=== PATIENT | male | born 1960 | race Caucasian/White ===

== ENCOUNTER → 2023-06-24 10:32 | Outpatient (REF) | payer BC, SELFPAY ==
[2023-06-24 10:41] LABS: % Basophils 0.5 % (0-2); % Eosinophils 0.9 % (0-6); % Immature Granulocytes 0.2 % (0-0.5); % Monocytes 6.5 % (1.7-9.3); % Neutrophils 66.9 % (42.2-75.2); Absolute Lymphocytes 1.1 10^3/uL (1.2-3.4); Absolute Monocytes 0.3 10^3/uL (0.1-0.6); Hematocrit 43.1 % (39.0-52.0); Hemoglobin 14.8 g/dL (13.0-18.0); Mean Corp Hgb Conc. 34.3 g/dL (33.0-37.0); Mean Corpuscular Hgb 32.3 pg (27.0-31.0); Mean Corpuscular Volume 94.1 fL (80.0-94.0); Mean Platelet Volume 9.9 fL (7.4-10.4); Platelet Count 182 10^3/uL (130-400); Red Blood Cell Count 4.58 10^6/uL (4.70-6.10); Red Cell Dist. Width 13.3 % (11.5-14.5); White Blood Cell Count 4.4 10^3/uL (4.8-10.8)
[2023-06-24 11:59] LABS: ALT (SGPT) 24 U/L (0-50); AST (SGOT) 28 U/L (17-59); Albumin 4.3 g/dl (3.5-5.0); Alkaline Phosphatase 68 U/L (38-126); Blood Urea Nitrogen 15 mg/dl (9-20); Calcium 9.2 mg/dl (8.4-10.2); Carbon Dioxide 29 mmol/L (22-30); Chloride 102 mmol/L (98-107); Glucose 99 mg/dl (70-99); Potassium 4.3 mmol/L (3.5-5.1); Sodium 136 mmol/L (135-145); Total Protein 6.6 g/dl (6.3-8.2); eGFR 56.13
[2023-06-24 12:01] LABS: C-Reactive Protein < 5.00 mg/L (0.0-10.00)
[2023-06-24 13:06] LABS: Erythrocyte Sed Rate 11 mm/hour (0-20)
== END ==
LOC: OIDL 10:32
PROVIDERS: ATTENDING PHYSICIAN Internal Medicine Rheumatology; FAMILY PHYSICIAN Family Medicine
DX: M06.00 Rheumatoid arthritis without rheumatoid factor, unspecified site (principal)
CPT/HCPCS: 36415; 80053; 85025; 85652; 86140

== ENCOUNTER 2023-08-21 10:54 | Outpatient (RCR) | payer BC, SELFPAY ==
[2023-08-07 10:50] VITALS: BP 131/74
[2023-08-07] MEDS: NSS 250 IV (11:07)
[2023-08-07] MEDS: ORENCIA 100 MG IV (11:07)
[2023-08-07 12:08] VITALS: BP 132/73
[2023-08-21 11:03] VITALS: BP 110/69
[2023-08-21] MEDS: NSS 250 IV (11:19)
[2023-08-21] MEDS: ORENCIA 100 MG IV (11:46)
[2023-08-21 12:52] VITALS: BP 122/80
== END 2023-08-25 09:18 | disposition home or self-care (01) ==
LOC: OID 10:54
PROVIDERS: ATTENDING PHYSICIAN Internal Medicine Rheumatology; FAMILY PHYSICIAN Family Medicine
DX: M06.00 Rheumatoid arthritis without rheumatoid factor, unspecified site (principal)
CPT/HCPCS: 96365; J0129

== ENCOUNTER 2023-09-04 10:42 | Outpatient (RCR) | payer BC, SELFPAY ==
[2023-09-04 11:01] VITALS: BP 124/64
[2023-09-04] MEDS: ORENCIA 100 MG IV (11:25)
[2023-09-04] MEDS: NSS 250 IV (11:30)
== END 2023-09-07 08:48 | disposition home or self-care (01) ==
LOC: OID 10:42
PROVIDERS: ATTENDING PHYSICIAN Internal Medicine Rheumatology; FAMILY PHYSICIAN Family Medicine
DX: M06.00 Rheumatoid arthritis without rheumatoid factor, unspecified site (principal)
CPT/HCPCS: 96365; J0129

== ENCOUNTER 2023-10-05 10:44 | Outpatient (RCR) | payer BC, SELFPAY ==
[2023-10-05 11:00] VITALS: BP 135/76
[2023-10-05 11:09] VITALS: BMI 26.8
[2023-10-05] MEDS: ORENCIA 100 MG IV (11:21)
[2023-10-05] MEDS: NSS 250 IV (11:21)
[2023-10-05 12:15] VITALS: BP 140/77
[2023-10-08 10:13] LABS: % Basophils 0.4 % (0-2); % Eosinophils 1.3 % (0-6); % Lymphocytes 23.6 % (20.5-51.1); % Monocytes 6.7 % (1.7-9.3); Absolute Eosinophils 0.1 10^3/uL (0-0.7); Absolute Lymphocytes 1.1 10^3/uL (1.2-3.4); Absolute Monocytes 0.3 10^3/uL (0.1-0.6); Absolute Neutrophils 3.1 10^3/uL (1.4-6.5); Hematocrit 41.3 % (39.0-52.0); Hemoglobin 14.5 g/dL (13.0-18.0); Mean Corp Hgb Conc. 35.1 g/dL (33.0-37.0); Mean Corpuscular Hgb 33.3 pg (27.0-31.0); Mean Corpuscular Volume 94.7 fL (80.0-94.0); Mean Platelet Volume 10.1 fL (7.4-10.4); Platelet Count 192 10^3/uL (130-400); Red Blood Cell Count 4.36 10^6/uL (4.70-6.10); Red Cell Dist. Width 13.1 % (11.5-14.5); White Blood Cell Count 4.6 10^3/uL (4.8-10.8)
[2023-10-08 11:38] LABS: ALT (SGPT) 24 U/L (0-50); AST (SGOT) 32 U/L (17-59); Albumin 4.4 g/dl (3.5-5.0); Alkaline Phosphatase 77 U/L (38-126); Blood Urea Nitrogen 20 mg/dl (9-20); Calcium 9.1 mg/dl (8.4-10.2); Carbon Dioxide 27 mmol/L (22-30); Chloride 103 mmol/L (98-107); Estimated Creatinine Clearance 60 ml/min; Glucose 95 mg/dl (70-99); Potassium 4.4 mmol/L (3.5-5.1); Sodium 136 mmol/L (135-145); Total Bilirubin 1.2 mg/dl (0.2-1.3); Total Protein 6.4 g/dl (6.3-8.2); eGFR 55.78
[2023-10-08 11:42] LABS: C-Reactive Protein < 5.00 mg/L (0.0-10.00)
[2023-10-08 12:54] LABS: Erythrocyte Sed Rate 9 mm/hour (0-20)
== END 2023-10-28 14:57 | disposition home or self-care (01) ==
LOC: OID 10:44
PROVIDERS: ATTENDING PHYSICIAN Internal Medicine Rheumatology; FAMILY PHYSICIAN Family Medicine; PRIMARYCARE PHYSICIAN Family Medicine
DX: M06.00 Rheumatoid arthritis without rheumatoid factor, unspecified site (principal)
CPT/HCPCS: 36415; 80053; 85025; 85652; 86140; 96361; 96365; J0129

== ENCOUNTER 2023-11-02 10:49 | Outpatient (RCR) | payer BC, SELFPAY ==
[2023-11-02 10:50] VITALS: BP 123/90
[2023-11-02] MEDS: NSS 250 IV (11:11)
[2023-11-02] MEDS: ORENCIA 100 MG IV (11:13)
[2023-11-02 11:18] VITALS: BMI 27.7
== END 2023-11-03 08:07 | disposition home or self-care (01) ==
LOC: OID 10:49
PROVIDERS: ATTENDING PHYSICIAN Internal Medicine Rheumatology; PRIMARYCARE PHYSICIAN Family Medicine
DX: M06.00 Rheumatoid arthritis without rheumatoid factor, unspecified site (principal)
CPT/HCPCS: 96361; 96365; J0129

== ENCOUNTER 2023-12-04 10:48 | Outpatient (RCR) | payer BC, SELFPAY ==
[2023-12-04 10:55] VITALS: BP 144/90
[2023-12-04] MEDS: NSS 250 IV (11:11)
[2023-12-04] MEDS: ORENCIA 100 MG IV (11:11)
[2023-12-04 11:55] VITALS: BP 135/83
== END 2023-12-28 23:59 | disposition home or self-care (01) ==
LOC: OID 10:48
PROVIDERS: ATTENDING PHYSICIAN Internal Medicine Rheumatology; PRIMARYCARE PHYSICIAN Family Medicine
DX: M06.00 Rheumatoid arthritis without rheumatoid factor, unspecified site (principal)
CPT/HCPCS: 96365; J0129

== ENCOUNTER 2024-01-01 10:45 | Outpatient (RCR) | payer BC, SELFPAY ==
[2024-01-01 11:00] VITALS: BP 132/85
[2024-01-01] MEDS: ORENCIA 100 MG IV (11:18)
[2024-01-01] MEDS: NSS 250 IV (11:18)
== END 2024-01-04 08:01 | disposition home or self-care (01) ==
LOC: OID 10:45
PROVIDERS: ATTENDING PHYSICIAN Internal Medicine Rheumatology; PRIMARYCARE PHYSICIAN Family Medicine
DX: M06.00 Rheumatoid arthritis without rheumatoid factor, unspecified site (principal)
CPT/HCPCS: 96365; J0129

== ENCOUNTER 2024-02-26 10:52 | Outpatient (RCR) | payer BC, SELFPAY ==
[2024-01-29] MEDS: NSS 250 IV (11:19)
[2024-01-29] MEDS: ORENCIA 100 MG IV (11:20)
[2024-01-29 11:24] VITALS: BP 127/62
[2024-02-09 11:18] LABS: % Basophils 0.2 % (0-2); % Eosinophils 1.9 % (0-6); % Immature Granulocytes 0.2 % (0-0.5); % Lymphocytes 20.3 % (20.5-51.1); % Monocytes 7.7 % (1.7-9.3); % Neutrophils 69.7 % (42.2-75.2); Absolute Eosinophils 0.1 10^3/uL (0-0.7); Absolute Monocytes 0.4 10^3/uL (0.1-0.6); Absolute Neutrophils 3.4 10^3/uL (1.4-6.5); Hematocrit 42.6 % (39.0-52.0); Hemoglobin 14.4 g/dL (13.0-18.0); Mean Corp Hgb Conc. 33.8 g/dL (33.0-37.0); Mean Corpuscular Hgb 32.4 pg (27.0-31.0); Mean Corpuscular Volume 95.7 fL (80.0-94.0); Platelet Count 202 10^3/uL (130-400); Red Blood Cell Count 4.45 10^6/uL (4.70-6.10); White Blood Cell Count 4.8 10^3/uL (4.8-10.8)
[2024-02-09 12:21] LABS: C-Reactive Protein < 5.00 mg/L (0.0-10.00)
[2024-02-09 12:30] LABS: AST (SGOT) 22 U/L (17-59); Albumin 4.4 g/dl (3.5-5.0); Blood Urea Nitrogen 13 mg/dl (9-20); Calcium 9.2 mg/dl (8.4-10.2); Carbon Dioxide 28 mmol/L (22-30); Chloride 104 mmol/L (98-107); Glucose 79 mg/dl (70-99); Total Bilirubin 1.1 mg/dl (0.2-1.3); Total Protein 6.5 g/dl (6.3-8.2); eGFR > 60.00
[2024-02-09 12:55] LABS: ALT (SGPT) 21 U/L (0-50); Alkaline Phosphatase 65 U/L (38-126); Potassium 4.1 mmol/L (3.5-5.1); Sodium 141 mmol/L (135-145)
[2024-02-09 13:31] LABS: Erythrocyte Sed Rate 8 mm/hour (0-20)
[2024-02-26 11:11] VITALS: BP 135/79
[2024-02-26] MEDS: NSS 250 IV (11:15)
[2024-02-26] MEDS: ORENCIA 100 MG IV (11:17)
== END 2024-02-27 23:59 | disposition home or self-care (01) ==
LOC: OID 10:52
PROVIDERS: ATTENDING PHYSICIAN Internal Medicine Rheumatology; PRIMARYCARE PHYSICIAN Family Medicine
DX: M06.00 Rheumatoid arthritis without rheumatoid factor, unspecified site (principal)
CPT/HCPCS: 36415; 80053; 85025; 85652; 86140; 96365; J0129

== ENCOUNTER 2024-03-10 09:34 | Outpatient (RCR) | payer BC, SELFPAY ==
[2024-03-10 09:51] LABS: Hemoglobin 14.2 g/dL (13.0-18.0); Mean Corp Hgb Conc. 34.6 g/dL (33.0-37.0); Mean Corpuscular Hgb 32.7 pg (27.0-31.0); Mean Corpuscular Volume 94.5 fL (80.0-94.0); Mean Platelet Volume 9.8 fL (7.4-10.4); Platelet Count 197 10^3/uL (130-400); Red Blood Cell Count 4.34 10^6/uL (4.70-6.10); Red Cell Dist. Width 12.8 % (11.5-14.5); White Blood Cell Count 5.2 10^3/uL (4.8-10.8)
[2024-03-10 11:06] LABS: ALT (SGPT) 24 U/L (0-50); AST (SGOT) 33 U/L (17-59); Albumin 4.2 g/dl (3.5-5.0); Alkaline Phosphatase 58 U/L (38-126); Blood Urea Nitrogen 14 mg/dl (9-20); Calcium 8.9 mg/dl (8.4-10.2); Carbon Dioxide 30 mmol/L (22-30); Chloride 105 mmol/L (98-107); Direct Bilirubin 0.2 mg/dl (0.0-0.4); Glucose 98 mg/dl (70-99); Potassium 4.4 mmol/L (3.5-5.1); Sodium 142 mmol/L (135-145); Total Bilirubin 1.2 mg/dl (0.2-1.3); Total Protein 6.3 g/dl (6.3-8.2); eGFR > 60.00
[2024-03-10 11:15] LABS: Glycohemoglobin (HgbA1c) 5.5 % (4.0-5.6)
[2024-03-10 12:54] LABS: Vitamin D, 25-OH*** 19.7 ng/mL (30-80)
[2024-03-10 13:07] LABS: PSA, Total - Screen 0.68 ng/ml (0.0-4.0); TSH Reflex To Free T4 1.16 uIU/ml (0.47-4.68)
[2024-03-10 13:26] LABS: Vitamin B12 285 pg/ml (239-931)
[2024-03-10 21:27] LABS: Hepatitis C Antibody Negative (Negative)
== END 2024-03-10 23:59 | disposition home or self-care (01) ==
LOC: OID 09:34
PROVIDERS: Student in an Organized Health Care Education/Training Program; ATTENDING PHYSICIAN Internal Medicine Rheumatology; PRIMARYCARE PHYSICIAN Family Medicine
DX: M06.00 Rheumatoid arthritis without rheumatoid factor, unspecified site (principal); M06.9 Rheumatoid arthritis, unspecified (principal); R55 Syncope and collapse
CPT/HCPCS: 36415; 80053; 82248; 82306; 82607; 83036; 84443; 85027; 86803; G0103

== ENCOUNTER → 2024-03-15 14:06 | Outpatient (REF) | payer BC, SELFPAY | LOC: RAD 14:06 | PROVIDERS: ATTENDING PHYSICIAN Student in an Organized Health Care Education/Training Program | DX: R55 Syncope and collapse (principal) | CPT/HCPCS: 93880 ==

== ENCOUNTER → 2024-04-14 09:50 | Outpatient (REF) | payer BC, SELFPAY | LOC: RCS 09:50 | PROVIDERS: ATTENDING PHYSICIAN Internal Medicine Cardiovascular Disease; FAMILY PHYSICIAN Physician Assistant Medical | DX: R07.89 Other chest pain (principal) | CPT/HCPCS: 93017; 93350 ==

== ENCOUNTER 2024-04-29 11:35 | Outpatient (RCR) | payer BC, SELFPAY ==
[2024-04-01] MEDS: NSS 250 IV (11:36)
[2024-04-01] MEDS: ORENCIA 100 MG IV (11:37)
[2024-04-01 11:44] VITALS: BP 142/83
[2024-04-29] MEDS: NSS 250 IV (11:56)
[2024-04-29] MEDS: ORENCIA 100 MG IV (11:56)
[2024-04-29 12:08] VITALS: BP 135/73
== END 2024-04-29 23:59 | disposition home or self-care (01) ==
LOC: OID 11:35
PROVIDERS: ATTENDING PHYSICIAN Internal Medicine Rheumatology; FAMILY PHYSICIAN Family Medicine
DX: M06.00 Rheumatoid arthritis without rheumatoid factor, unspecified site (principal); R55 Syncope and collapse; M06.9 Rheumatoid arthritis, unspecified
CPT/HCPCS: 96365; J0129

== ENCOUNTER 2024-05-27 10:51 | Outpatient (RCR) | payer BC, SELFPAY ==
[2024-05-27] MEDS: NSS 250 IV (11:29)
[2024-05-27] MEDS: ORENCIA 100 MG IV (11:30)
[2024-05-27 11:36] VITALS: BP 143/84
== END 2024-05-27 13:07 | disposition home or self-care (01) ==
LOC: OID 10:51
PROVIDERS: ATTENDING PHYSICIAN Internal Medicine Rheumatology; FAMILY PHYSICIAN Family Medicine
DX: M06.00 Rheumatoid arthritis without rheumatoid factor, unspecified site (principal); R55 Syncope and collapse; M06.9 Rheumatoid arthritis, unspecified
CPT/HCPCS: 96365; J0129

== ENCOUNTER 2024-06-22 10:02 | Outpatient (RCR) | payer BC, SELFPAY ==
[2024-06-22 10:05] VITALS: BP 118/75
[2024-06-22] MEDS: ORENCIA 100 MG IV (10:27)
[2024-06-22] MEDS: NSS 250 IV (10:27)
== END 2024-06-23 09:02 | disposition home or self-care (01) ==
LOC: OID 10:02
PROVIDERS: ATTENDING PHYSICIAN Internal Medicine Rheumatology; FAMILY PHYSICIAN Family Medicine
DX: M06.00 Rheumatoid arthritis without rheumatoid factor, unspecified site (principal); R55 Syncope and collapse; M06.9 Rheumatoid arthritis, unspecified
CPT/HCPCS: 96365; J0129

== ENCOUNTER 2024-07-20 10:02 | Outpatient (RCR) | payer MEDICARE, OTHER, SELFPAY ==
[2024-07-20 10:05] VITALS: BP 130/69
[2024-07-20] MEDS: NSS 250 IV (10:26)
[2024-07-20] MEDS: ORENCIA 100 MG IV (10:26)
[2024-07-20 11:21] LABS: % Basophils 0.7 % (0-2); % Eosinophils 3.2 % (0-6); % Immature Granulocytes 0.2 % (0-0.5); % Monocytes 7.4 % (1.7-9.3); % Neutrophils 64.5 % (42.2-75.2); Absolute Eosinophils 0.1 10^3/uL (0-0.7); Absolute Monocytes 0.3 10^3/uL (0.1-0.6); Absolute Neutrophils 2.6 10^3/uL (1.4-6.5); Erythrocyte Sed Rate 2 mm/hour (0-20); Hematocrit 41.5 % (39.0-52.0); Hemoglobin 14.4 g/dL (13.0-18.0); Mean Corp Hgb Conc. 34.7 g/dL (33.0-37.0); Mean Corpuscular Hgb 32.2 pg (27.0-31.0); Mean Corpuscular Volume 92.8 fL (80.0-94.0); Mean Platelet Volume 10.5 fL (7.4-10.4); Nucleated Red Blood Cells % 0 % (-); Platelet Count 200 10^3/uL (130-400); Red Blood Cell Count 4.47 10^6/uL (4.70-6.10); Red Cell Dist. Width 13.2 % (11.5-14.5)
[2024-07-20 11:33] LABS: ALT (SGPT) 23 U/L (0-50); AST (SGOT) 26 U/L (17-59); Albumin 4.5 g/dl (3.5-5.0); Alkaline Phosphatase 58 U/L (38-126); Blood Urea Nitrogen 18 mg/dl (9-20); Carbon Dioxide 25 mmol/L (22-30); Chloride 105 mmol/L (98-107); Glucose 112 mg/dl (70-99); Potassium 4.2 mmol/L (3.5-5.1); Sodium 141 mmol/L (135-145); Total Bilirubin 1.1 mg/dl (0.2-1.3); Total Protein 6.4 g/dl (6.3-8.2); eGFR > 60.00
[2024-07-20 11:34] LABS: C-Reactive Protein < 5.00 mg/L (0.0-10.00)
== END 2024-07-27 23:59 | disposition home or self-care (01) ==
LOC: OID 10:02
PROVIDERS: ATTENDING PHYSICIAN Internal Medicine Rheumatology; FAMILY PHYSICIAN Family Medicine
DX: M06.00 Rheumatoid arthritis without rheumatoid factor, unspecified site (principal); R55 Syncope and collapse; M06.9 Rheumatoid arthritis, unspecified
CPT/HCPCS: 36415; 80053; 85025; 85652; 86140; 96365; J0129

== ENCOUNTER 2024-08-17 10:04 | Outpatient (RCR) | payer MEDICARE, OTHER, SELFPAY ==
[2024-08-17 10:10] VITALS: BP 123/68
[2024-08-17] MEDS: ORENCIA 100 MG IV (10:31)
[2024-08-17] MEDS: NSS 250 IV (10:31)
== END 2024-08-18 09:49 | disposition home or self-care (01) ==
LOC: OID 10:04
PROVIDERS: ATTENDING PHYSICIAN Internal Medicine Rheumatology; FAMILY PHYSICIAN Family Medicine
DX: M06.00 Rheumatoid arthritis without rheumatoid factor, unspecified site (principal)
CPT/HCPCS: 96365; J0129

== ENCOUNTER 2024-09-14 10:52 | Outpatient (RCR) | payer MEDICARE, OTHER, SELFPAY ==
[2024-09-14] MEDS: NSS 250 IV (11:16)
[2024-09-14] MEDS: ORENCIA 100 MG IV (11:16)
[2024-09-14 11:19] VITALS: BP 128/70
[2024-09-14 11:50] VITALS: BP 126/70
== END 2024-09-15 08:34 | disposition home or self-care (01) ==
LOC: OID 10:52
PROVIDERS: ATTENDING PHYSICIAN Internal Medicine Rheumatology; FAMILY PHYSICIAN Family Medicine
DX: M06.00 Rheumatoid arthritis without rheumatoid factor, unspecified site (principal); R55 Syncope and collapse; M06.9 Rheumatoid arthritis, unspecified
CPT/HCPCS: 96365; J0129

== ENCOUNTER 2024-10-12 10:59 | Outpatient (RCR) | payer MEDICARE, OTHER, SELFPAY ==
[2024-10-12] MEDS: ORENCIA 100 MG IV (11:29)
[2024-10-12] MEDS: NSS 250 IV (11:29)
[2024-10-12 11:36] VITALS: BP 133/73
== END 2024-10-13 08:35 | disposition home or self-care (01) ==
LOC: OID 10:59
PROVIDERS: ATTENDING PHYSICIAN Internal Medicine Rheumatology; FAMILY PHYSICIAN Family Medicine
DX: M06.00 Rheumatoid arthritis without rheumatoid factor, unspecified site (principal); R55 Syncope and collapse; M06.9 Rheumatoid arthritis, unspecified
CPT/HCPCS: 96365; J0129

== ENCOUNTER 2024-10-13 09:34 | Outpatient (RCR) | payer MEDICARE, OTHER, SELFPAY ==
[2024-10-13 12:07] LABS: HDL Cholesterol 80 mg/dl; LDL Cholesterol, Calculated 140 mg/dl; Very Low Density Lipoprotein 15 mg/dl (0-30)
== END 2024-10-27 23:59 | disposition home or self-care (01) ==
LOC: OID 09:34
PROVIDERS: ATTENDING PHYSICIAN Internal Medicine Rheumatology; FAMILY PHYSICIAN Family Medicine; REFERRING PHYSICIAN Student in an Organized Health Care Education/Training Program
DX: Z13.220 Encounter for screening for lipoid disorders (principal); R44.9 Unspecified symptoms and signs involving general sensations and perceptions; R55 Syncope and collapse; M06.09 Rheumatoid arthritis without rheumatoid factor, multiple sites
CPT/HCPCS: 36415; 80061

== ENCOUNTER → 2024-10-25 18:41 | Outpatient (REF) | payer MEDICARE, OTHER, SELFPAY | LOC: MRI 18:41 | PROVIDERS: ATTENDING PHYSICIAN Student in an Organized Health Care Education/Training Program | DX: R44.9 Unspecified symptoms and signs involving general sensations and perceptions (principal) | CPT/HCPCS: 70553; A9575 ==

== ENCOUNTER 2024-10-28 13:03 | Emergency (ER) | payer MEDICARE, OTHER, SELFPAY ==
[2024-10-28 13:11] VITALS: BP 139/81
[2024-10-28 13:29] LABS: Hematocrit 40.5 % (39.0-52.0); Hemoglobin 14.3 g/dL (13.0-18.0); Mean Corp Hgb Conc. 35.3 g/dL (33.0-37.0); Mean Corpuscular Volume 92.0 fL (80.0-94.0); Nucleated Red Blood Cells % 0 % (-); Platelet Count 192 10^3/uL (130-400); Red Cell Dist. Width 13.2 % (11.5-14.5)
[2024-10-28 13:59] LABS: ALT (SGPT) 26 U/L (0-50); AST (SGOT) 29 U/L (17-59); Albumin 4.5 g/dl (3.5-5.0); Alkaline Phosphatase 59 U/L (38-126); Blood Urea Nitrogen 18 mg/dl (9-20); Calcium 9.2 mg/dl (8.4-10.2); Carbon Dioxide 24 mmol/L (22-30); Chloride 106 mmol/L (98-107); Glucose 108 mg/dl (70-99); Potassium 4.5 mmol/L (3.5-5.1); Sodium 136 mmol/L (135-145); Total Protein 7.0 g/dl (6.3-8.2); eGFR > 60.00
[2024-10-28 15:49] VITALS: BP 127/86
[2024-10-28 16:00] VITALS: BP 127/83
--- NOTE | 2024-10-28 16:46 | ED.CVA ---
History of Present Illness
General
Chief Complaint: CVA/TIA Symptoms
Source: patient
Exam Limitations: none
Time Seen by Provider: 10/28/24 15:54
Nursing documentation reviewed up to this point in time: agreed with
Onset of Stroke Symptoms
Onset of symptoms known: No
Time pt last seen normal is known: No
History of Present Illness
History of Present Illness:
Patient is a 64-year male who presents to the ER for evaluation. Patient reports around 3 weeks ago he had an episode where he was getting off the toilet and things seem louder than normal. He then noticed that he had difficulty putting on a
light switch and finally he had a sensation that he was going to drop something out of his right hand. He did not do anything at that time but did see his family doctor as an outpatient who ordered an MRI. He did have an MRI this week and was told
today that he had a stroke in instructed to come to the ER.
He has no cardiac history but has seen a mental measurements teacher in the past for intermittent episodes of chest pain. He actually reports he has had some discomfort in his left chest intermittently but had a stress test it was negative. The last episode of
chest discomfort was 2 nights ago.
Patient has no complaints now.
Past History
Past History
ED Past Medical History: None
Social History
Tobacco: Non-smoker
Personal:
Living: with family
Employment: Employed (self employed)
Phy Exam
General Physical Exam
General Presentation: no apparent distress
General age: appears stated age
General Skin: warm and dry
General Habitus: normal
General Mental: alert
General Hydration: appears well hydrated
Cardiovascular Exam
Cardiovascular Exam: regular rate/rhythm, no murmur and normal peripheral pulses
Pulmonary Exam
Pulmonary Exam: lungs clear and no respiratory distress
Neurological Exam
Neurological Exam: alert, oriented x3, no motor deficits, no sensory deficits and speech normal
NIH Stroke Score
Level of Consciousness: 0 - Alert
LOC questions: 0-Answers both correctly
LOC Commands: 0-Performs both correctly
Best Gaze: 0-Normal
Visual Hernandez: 0=Normal, no visual loss
Facial palsy: 0=Normal, symmetrical
Motor - Right Arm: 0=No drift 10 seconds
Motor - Left Arm: 0=No drift 10 seconds
Motor - Right Le-No drift 5 seconds
Motor - Left Le-No drift 5 seconds
Limb Ataxia: 0-Absent
Sensation: 0-Normal
Best Language: 0-No aphasia
Dysarthria: 0-Normal
Extinction and Inattention: 0-No abnormality
Total Score:: 0
Musculoskeletal Exam
Musculoskeletal Exam: full ROM and other ( no leg swelling b/l )
Skin Exam
Skin Exam: normal color and warm/dry
Psychiatric Exam
Psychiatric Exam: normal mood/affect
Course
Orders/Labs/Results
Orders:
Orders
10/28/24 13:18
Complete Blood Count/With Diff Urgent
Comprehensive Metabolic Panel Urgent
10/28/24 17:31
Electrocardiogram (*1) Stat
Reason for Study: Other
Other Reason for Exam: chest pain
EKG- Treatment ONCE
10/28/24 17:41
Aspirin Chewable [Low Strength Aspirin] 81 mg PO NOW STA
Atorvastatin [Lipitor] 40 mg PO NOW STA
10/28/24 18:05
Troponin I Urgent
Abnormal Lab Results
10/28/24
13:18
WBC 4.5 L 10^3/uL
(4.8-10.8)
RBC 4.40 L 10^6/uL
(4.70-6.10)
MCH 32.5 H pg
(27.0-31.0)
Glucose 108 H mg/dl
(70-99)
Total Bilirubin 1.7 H mg/dl
(0.2-1.3)
10/28/24 13:18
10/28/24 13:18
Vital Signs
Initial and Last Documented VS:
Initial Vital Signs
Temp Pulse Resp BP Pulse Ox
98.3 F 63 16 139/81 98
10/28/24 13:11 10/28/24 13:11 10/28/24 13:11 10/28/24 13:11 10/28/24 13:11
Last Documented Vital Signs
Temp Pulse Resp BP Pulse Ox
98.3 F 51 16 116/59 100
10/28/24 13:11 10/28/24 17:45 10/28/24 17:45 10/28/24 17:00 10/28/24 16:52
Enrichment Teacher consulted with Physician
Enrichment Teacher consulted with physician?: Yes
Name of Physician Consulted: amie
MDM/Problems Addressed
Differential Diagnosis Includes:
Not limited to CVA
MDM/Problems Addressed:
As documented patient is a [age]-year-old male who had an episode likely stroke 3 weeks ago. He was evaluated by family doctor after he just had an MRI on Thursday, 4 days ago. MRI reviewed with neurology concerning for stroke. Patient has no
deficits now he has been seen by cardiology in the past for chest pain and had a normal stress echo April 14, 2024 which I reviewed.
Patient was sent by PCP. Patient has no neurodeficits here in the ER. Case reviewed with neurology. He does recommend aspirin and Lipitor and discharge home with additional imaging and studies followed by cardiology.
Patient had a carotid ultrasound done February 2020 for right carotid shows mild calcified plaque within the proximal ICA left carotid is unremarkable appearance of the bulb and proximal ICA mild calcified plaque in the proximal external carotid
artery no significant stenosis .
As reviewed with neurology stable for discharge home patient has no deficit after Dr. Oliveira recommend aspirin and Lipitor with close outpatient up with cardiology For further evaluation monitoring
*Radiology
Radiology exam reviewed: radiology read reviewed (MRI from October 26 shows signal alteration mild gyral enhancement in the left postcentral gyrus bleeding consideration of a small subacute infarct with postischemic hyperperfusion and/or cortical
laminar necrosis)
*Pulse Oximetry
SaO2: 100
Oxygen Mode of Delivery: Room air
Patient hypoxic: no
*EKG
Interpreted by ED Provider?: Yes
Heart Rate: 53
Rate: bradycardiac
Rhythm: sinus
Ischemia: no ischemia
*Critical Care Note
Total Time (30-74mins, 75-104mins- exclusive of procedures): Not Applicable
Patient Management
Discussion with other providers: Noodle Maker (neuro DR Oliveira )
ED Attending Note
-
Portions of this chart may have been created with voice recognition software.� Occasional wrong word or��sound alike� substitutions may have occurred due to the inherent limitations of voice recognition software.
Discharge Plan
Departure
Patient Disposition: Home (Routine Discharge)
Date of Disposition: 10/28/24
Time of Disposition: 18:52
Patient with high blood pressure during this ER visit?: No
Condition: Fair
Covid-19: Not Applicable
Discharge Problem:
Acute CVA (cerebrovascular accident)
Instructions: Stroke - Discharge instructions
Prescriptions:
New
atorvastatin [Lipitor] 40 mg tablet
40 mg PO DAILY Qty: 30 0RF
No Action
ibuprofen 200 mg Capsule
800 mg PO .Q8 PRN (Reason: pain)
Referrals:
Kiel Conklin DO [Family Provider, Family Practice]
Darinel Narayanan MD [Active, Cardiology]
Alfonso Oliveira MD [Active, Neurology]
Activity Restrictions/Additional Instructions:
As discussed a prescription was sent to the pharmacy for Lipitor: Take 40 mg daily you were given 1 month supply. You will need additional prescriptions.
In addition please take 1 baby aspirin 81 mg [id number] daily
Please follow-up with your family doctor and neurology and cardiology. You will need additional studies including echocardiogram and possible Holter monitoring. Call Thursday to make appointments.
return if any worsening of symptoms
Interventions
Interventions:
*Risk Screen - Suicide Last Done: 10/28/24 13:16
*General Assessment Last Done: 10/28/24 15:48
*Neglect/Abuse Screening Last Done: 10/28/24 13:16
*ED- Fall Risk Assessment Last Done: 10/28/24 15:48
ED- Pulmonary Assessment Last Done: 10/28/24 15:48
ED- Neurological Assessment Last Done: 10/28/24 15:48
ED- Cardiac Assessment Last Done: 10/28/24 15:48
ED Swallowing Screen Last Done: 10/28/24 15:49
Discharge Date and Time
Print Language: UKRAINIAN
[2024-10-28 17:00] VITALS: BP 116/59
[2024-10-28] MEDS: LOW STRENGTH ASPIRIN 81 MG PO (17:51)
[2024-10-28] MEDS: LIPITOR 40 MG PO (17:51)
[2024-10-28 18:35] LABS: Troponin I < 0.012 ng/ml
== END 2024-10-28 19:37 | disposition home or self-care (01) ==
LOC: EMR 13:03
PROVIDERS: Emergency Medicine; Nurse Practitioner; EMERGENCY PHYSICIAN Emergency Medicine; FAMILY PHYSICIAN Student in an Organized Health Care Education/Training Program
DX: I63.9 Cerebral infarction, unspecified (principal); R07.89 Other chest pain; F41.9 Anxiety disorder, unspecified; M06.9 Rheumatoid arthritis, unspecified; Z96.642 Presence of left artificial hip joint; Z85.828 Personal history of other malignant neoplasm of skin
CPT/HCPCS: 99283; 80053; 84484; 85025; 93005

== ENCOUNTER 2024-11-09 10:53 | Outpatient (RCR) | payer MEDICARE, OTHER, SELFPAY ==
[2024-11-09 11:04] VITALS: BP 125/70
[2024-11-09] MEDS: NSS 250 IV (11:18)
[2024-11-09] MEDS: ORENCIA 100 MG IV (11:18)
[2024-11-09 13:05] VITALS: BP 123/70
== END 2024-11-10 09:59 | disposition home or self-care (01) ==
LOC: OID 10:53
PROVIDERS: ATTENDING PHYSICIAN Internal Medicine Rheumatology; FAMILY PHYSICIAN Family Medicine; REFERRING PHYSICIAN Student in an Organized Health Care Education/Training Program
DX: M06.00 Rheumatoid arthritis without rheumatoid factor, unspecified site (principal); R55 Syncope and collapse; M06.9 Rheumatoid arthritis, unspecified
CPT/HCPCS: 96365; J0129

== ENCOUNTER 2024-12-06 10:09 | Outpatient (RCR) | payer MEDICARE, OTHER, SELFPAY ==
[2024-12-06 10:15] VITALS: BP 136/78
[2024-12-06] MEDS: NSS 250 IV (10:39)
[2024-12-06] MEDS: ORENCIA 100 MG IV (10:40)
== END 2024-12-07 08:59 | disposition home or self-care (01) ==
LOC: OID 10:09
PROVIDERS: ATTENDING PHYSICIAN Internal Medicine Rheumatology; FAMILY PHYSICIAN Family Medicine; REFERRING PHYSICIAN Student in an Organized Health Care Education/Training Program
DX: M06.00 Rheumatoid arthritis without rheumatoid factor, unspecified site (principal); R55 Syncope and collapse; M06.9 Rheumatoid arthritis, unspecified
CPT/HCPCS: 96365; J0129

== ENCOUNTER 2025-01-03 09:33 | Outpatient (RCR) | payer MEDICARE, OTHER, SELFPAY ==
[2025-01-03 10:30] LABS: Hematocrit 41.0 % (39.0-52.0); Hemoglobin 14.2 g/dL (13.0-18.0); Mean Corp Hgb Conc. 34.6 g/dL (33.0-37.0); Mean Corpuscular Volume 94.5 fL (80.0-94.0); Platelet Count 177 10^3/uL (130-400); Red Cell Dist. Width 13.1 % (11.5-14.5)
[2025-01-03] MEDS: ORENCIA 100 MG IV (10:31)
[2025-01-03] MEDS: NSS 250 IV (10:31)
[2025-01-03 10:43] VITALS: BP 139/73
[2025-01-03 11:18] LABS: ALT (SGPT) 29 U/L (0-50); AST (SGOT) 25 U/L (17-59); Albumin 4.2 g/dl (3.5-5.0); Alkaline Phosphatase 66 U/L (38-126); Blood Urea Nitrogen 14 mg/dl (9-20); Calcium 9.0 mg/dl (8.4-10.2); Carbon Dioxide 29 mmol/L (22-30); Chloride 106 mmol/L (98-107); Glucose 113 mg/dl (70-99); Potassium 4.0 mmol/L (3.5-5.1); Sodium 140 mmol/L (135-145); Total Protein 6.4 g/dl (6.3-8.2); eGFR > 60.00
[2025-01-03 11:22] LABS: C-Reactive Protein < 5.00 mg/L (0.0-10.00)
== END 2025-01-04 09:56 | disposition home or self-care (01) ==
LOC: OID 09:33
PROVIDERS: ATTENDING PHYSICIAN Internal Medicine Rheumatology; FAMILY PHYSICIAN Family Medicine; REFERRING PHYSICIAN Student in an Organized Health Care Education/Training Program
DX: M06.00 Rheumatoid arthritis without rheumatoid factor, unspecified site (principal); R55 Syncope and collapse; M06.9 Rheumatoid arthritis, unspecified
CPT/HCPCS: 80053; 85027; 85652; 86140; 96365; J0129

== ENCOUNTER → 2025-01-25 10:21 | Outpatient (REF) | payer MEDICARE, OTHER, SELFPAY | LOC: RCS 10:21 | PROVIDERS: ATTENDING PHYSICIAN Internal Medicine Cardiovascular Disease; FAMILY PHYSICIAN Student in an Organized Health Care Education/Training Program | DX: I48.0 Paroxysmal atrial fibrillation (principal) | CPT/HCPCS: 93306 ==

== ENCOUNTER 2025-01-31 10:07 | Outpatient (RCR) | payer MEDICARE, OTHER, SELFPAY ==
[2025-01-31 10:15] VITALS: BP 123/75
[2025-01-31] MEDS: ORENCIA 100 MG IV (10:38)
[2025-01-31] MEDS: NSS 250 IV (10:38)
[2025-01-31 11:57] LABS: HDL Cholesterol 89 mg/dl; LDL Cholesterol, Calculated 59 mg/dl; Very Low Density Lipoprotein 16 mg/dl (0-30)
[2025-01-31 12:14] LABS: TSH 0.83 uIU/ml (0.47-4.68)
[2025-01-31 12:49] LABS: Folate 11.6 ng/ml (2.76-20); Vitamin B12 316 pg/ml (239-931)
== END 2025-02-01 09:24 | disposition home or self-care (01) ==
LOC: OID 10:07
PROVIDERS: Internal Medicine Cardiovascular Disease; ATTENDING PHYSICIAN Internal Medicine Rheumatology; FAMILY PHYSICIAN Family Medicine; OTHER PHYSICIAN Psychiatry & Neurology Neurology; REFERRING PHYSICIAN Student in an Organized Health Care Education/Training Program
DX: M06.00 Rheumatoid arthritis without rheumatoid factor, unspecified site (principal); R55 Syncope and collapse; M06.9 Rheumatoid arthritis, unspecified
CPT/HCPCS: 36415; 80061; 82607; 82746; 84443; 96365; J0129

== ENCOUNTER 2025-03-28 10:53 | Outpatient (RCR) | payer MEDICARE, OTHER, SELFPAY ==
[2025-02-28] MEDS: NSS 250 IV (10:36)
[2025-02-28] MEDS: ORENCIA 100 MG IV (10:36)
[2025-02-28 10:41] VITALS: BP 135/79
[2025-02-28 11:15] VITALS: BP 123/75
[2025-03-28 11:00] VITALS: BP 128/69
[2025-03-28] MEDS: NSS 250 IV (11:17)
[2025-03-28] MEDS: ORENCIA 100 MG IV (11:17)
== END 2025-03-29 23:59 | disposition home or self-care (01) ==
LOC: OID 10:53
PROVIDERS: ATTENDING PHYSICIAN Internal Medicine Rheumatology; FAMILY PHYSICIAN Family Medicine; OTHER PHYSICIAN Psychiatry & Neurology Neurology; REFERRING PHYSICIAN Student in an Organized Health Care Education/Training Program
DX: M06.00 Rheumatoid arthritis without rheumatoid factor, unspecified site (principal); R44.9 Unspecified symptoms and signs involving general sensations and perceptions; R55 Syncope and collapse; M06.9 Rheumatoid arthritis, unspecified; R41.3 Other amnesia
CPT/HCPCS: 96365; J0129